=== PATIENT | male | born 1960 | race Caucasian/White ===

== ENCOUNTER 2022-12-18 09:30 | Emergency (ER) | payer OTHER ==
[2022-12-18] MEDS ORDERED: Sodium Chloride 0.9% 1000 ML 1,000 ML ONE (10:23)
[2022-12-18] MEDS ORDERED: Sodium Chloride 0.9% 1000 ML 1,000 ML IV STA (10:23)
--- NOTE | 2022-12-18 10:48 | ERPHSYRPT ---
- History of Present Illness Time Seen by Provider: 12/18/22 09:32 Patient Subjective Stated Complaint: running fever for 8 days Triage Nursing Assessment: Patient reports to ER with complaints of f ever/chills, headache and lethargy over the last 8 days. Patient states that he has taken two home covid test which were negative and that he was tested at our [facility] on 12/16/22 which was also negative. Patient reports he has been taking tylenol every 6 hours for the last 8 days. Temp 99.1 oral at this time. Patients denies headache at this time but states he just feels "exhausted". Patient den ies shortness of breath, cough, sore throat and head congestion. Physician History: 62 years old male with history of hypertension presented in the ER with chief complaint of fever for last 8 days. Fever breaks for few hour after taking Tylenol. Reports associated headache while having fever without neck pain rigidity/vomiting nausea. Denies any chest pain palpitations shortness of breath, mild upper respiratory congestion. Denies any urinary symptoms. No abdominal pain. Denies any known sick contacts. Timing/Duration: day(s) (8), intermittent, gradual onset, worse Severity: moderate Modifying Factors: Improves With: acetaminophen Associated Symptoms: chills, fever, headaches, loss of appetite, malaise, weakness, No nausea, No vomiting, No abdominal pain, No shortness of breath, No heartburn, No diaphoresis, No cough, No chest pain, No syncope, No seizure Allergies/Adverse Reactions: No Known Drug Allergies Allergy (Unverified 12/18/22 09:37) Home Medications: Amlodipine Besylate 5 mg [Norvasc 5 mg] 5 mg PO DAILY 12/18/22 [History] Hx Influenza Vaccination/Date Given: Yes Immunizations Up to Date: Yes Travel Risk - International Travel Have you traveled outside of the country in past 3 weeks: No - Coronavirus Screening Are you exhibiting any of the following symptoms?: No Close contact with a COVID-19 positive Pt in past 14-21 Days: No - Vaccine Status Have you recieved a Covid-19 vaccination: Yes Staffing Consultant: [employer] - Vaccination Dates Date of 2cond Vaccination (if applicable): unk - Review of Systems Constitutional: Fever, Chills, Fatigue, Weakness Eyes: No Symptoms Ears, Nose, & Throat: Nose Congestion Respiratory: No Symptoms Cardiac: No Symptoms Abdominal/Gastrointestinal: No Symptoms Genitourinary Symptoms: No Symptoms Musculoskeletal: No Symptoms Skin: No Symptoms Neurological: Headache Psychological: No Symptoms Endocrine: No Symptoms Hematologic/Lymphatic: No Symptoms - Past Medical History Pertinent Past Medical History: Yes Neurological History: No Pertinent History ENT History: No Pertinent History Cardiac History: Hypertension Respiratory History: No Pertinent History Endocrine Medical History: No Pertinent History Musculoskeletal History: No Pertinent History GI Medical History: No Pertinent History History: No Pertinent History Psycho-Social History: No Pertinent History Male Reproductive Disorders: No Pertinent History - Past Surgical History Past Surgical History: Yes Neuro Surgical History: No Pertinent History Cardiac: No Pertinent History Gastrointestinal: Cholecystectomy Genitourinary: No Pertinent History Musculoskeletal: No Pertinent History Male Surgical History: No Pertinent History - Social History Smoking Status: Never smoker Exposure to second hand smoke: No Drug Use: none Patient Lives Alone: Yes - Nursing Vital Signs Nursing Vital Signs: Initial Vital Signs Temperature 99.1 F 12/18/22 09:42 Pulse Rate 99 H 12/18/22 09:42 Respiratory Rate 18 12/18/22 09:42 Blood Pressure 145/90 12/18/22 09:42 Pain Scale Pain Intensity 0 - Physical Exam General Appearance: no apparent distress, alert Eye Exam: PERRL/EOMI Ears, Nose, Throat Exam: normal ENT inspection, TMs normal, pharynx normal, moist mucous membranes Neck Exam: normal inspection, non-tender, supple, full range of motion Respiratory Exam: normal breath sounds, lungs clear Cardiovascular Exam: regular rate/rhythm, normal heart sounds Gastrointestinal/Abdomen Exam: soft, normal bowel sounds, No tenderness Back Exam: normal inspection, normal range of motion Neurologic Exam: alert, oriented x 3, cooperative, security and compliance analyst II-XII nml as tested, normal mood/affect, nml cerebellar function, nml station & gait, sensation nml, No motor deficits SpO2 Interpretation: normal SpO2: 96 O2 Delivery: Room Air Ordered Tests: Active Orders 24 hr Category Date Time Status IV Insertion STAT Care 12/18/22 10:23 Active ABDOMEN AND PELVIS W CONTRAST [CT] Stat Exams 12/18/22 11:59 Completed CHEST 1 VIEW (PORTABLE) Stat Exams 12/18/22 10:23 Taken BLOOD CULTURE Stat Lab 12/18/22 10:25 Received CBC W DIFF Stat Lab 12/18/22 10:45 Completed CK-Creatinine Phosphokinase Stat Lab 12/18/22 10:45 Completed CMP Stat Lab 12/18/22 10:45 Completed CULTURE,URINE Stat Lab 12/18/22 10:29 Received Lactic Acid Stat Lab 12/18/22 11:14 Completed MAGNESIUM Stat Lab 12/18/22 10:45 Completed PROCALCITONIN Stat Lab 12/18/22 10:45 Completed UA W/RFX UR CULTURE Stat Lab 12/18/22 10:29 Completed Medication Summary Generic Name Dose Route Start Last Admin Trade Name Freq PRN Reason Stop Dose Admin Acetaminophen 1,000 mg 12/18/22 10:57 12/18/22 11:00 Acetaminophen 500 Mg Tablet PO 01/17/23 10:56 1,000 mg Q4H PRN PRN Administration HEADACHE Discontinued Medications Generic Name Dose Route Start Last Admin Trade Name Freq PRN Reason Stop Dose Admin Sodium Chloride 1,000 mls @ 999 mls/hr 12/18/22 10:23 12/18/22 11:38 Sodium Chloride 0.9% 1000 Ml IV 12/18/22 11:23 Infused .Q1H1M STA Infusion Sodium Chloride Confirm 12/18/22 10:23 Sodium Chloride 0.9% 1000 Ml Administered 12/18/22 10:24 Dose 1,000 mls @ ud .ROUTE .STK-MED ONE Piperacillin Sod/Tazobactam 100 mls @ 200 mls/hr 12/18/22 11:58 12/18/22 12:10 Sod 3.375 gm/ Sodium Chloride IV 12/18/22 12:27 200 mls/hr STAT ONE Administration Sodium Chloride Confirm 12/18/22 12:07 Sodium Chloride 100ml Mini-Bag Plus Administered 12/18/22 12:08 Dose 100 mls @ ud IV .STK-MED ONE Ketorolac Tromethamine 30 mg 12/18/22 12:17 12/18/22 12:19 Ketorolac Tromethamine 30 Mg/Ml Inj IV 12/18/22 12:18 30 mg STAT ONE Administration Ketorolac Tromethamine Confirm 12/18/22 12:18 Ketorolac Tromethamine 30 Mg/Ml Inj Administered 12/18/22 12:19 Dose 30 mg .ROUTE .STK-MED ONE Piperacillin Sod/Tazobactam Sod Confirm 12/18/22 12:07 Piperacillin/Tazobactam Sodium 3.375 Gm Vial Administered 12/18/22 12:08 Dose 3.375 gm IV .[facility] ONE Lab/Rad Data: Laboratory Result Diagrams 12/18/22 10:45 12/18/22 10:45 Laboratory Results 12/18/22 12/18/22 12/18/22 Range/Units 11:14 10:45 10:45 WBC (4.0-10.5) x10^3/uL RBC (4.1-5.6) x10^6/uL Hgb (12.5-18.0) g/dL Hct (42-50) % MCV (78-100) fL MCH (26-32) pg MCHC (32-36) g/dL RDW (11.5-14.0) % Plt Count (150-450) x10^3/uL MPV (7.5-11.0) fL Gran % (36.0-66.0) % Immature Gran % (Auto) (0.00-0.4) % Nucleat RBC Rel Count (0.00-0.1) % Eos # (Auto) (0-0.5) x10^3/uL Immature Gran # (Auto) (0.00-0.03) x10^3u/L Absolute Lymphs (auto) (1.0-4.6) x10^3/uL Absolute Monos (auto) (0.0-1.3) x10^3/uL Absolute Nucleated RBC (0.00-0.01) x10^3u/L Lymphocytes % (24.0-44.0) % Monocytes % (0.0-12.0) % Eosinophils % (0.00-5.0) % Basophils % (0.0-0.4) % Absolute Granulocytes (1.4-6.9) x10^3/uL Basophils # (0-0.4) x10^3/uL Sodium (137-145) mmol/L Potassium (3.5-5.1) mmol/L Chloride (98-107) mmol/L Carbon Dioxide (22-30) mmol/L Anion Gap (5-15) MEQ/L BUN (9-20) mg/dL Creatinine (0.66-1.25) mg/dL Estimated GFR ML/MIN Glucose (74-106) mg/dL Lactic Acid 1.5 (0.4-2.0) Calcium (8.4-10.2) mg/dL Magnesium (1.6-2.3) mg/dL Total Bilirubin (0.2-1.3) mg/dL AST (17-59) U/L ALT (0-50) U/L Alkaline Phosphatase (38-126) U/L Creatine Kinase (55-170) U/L Serum Total Protein (6.3-8.2) g/dL Albumin (3.5-5.0) g/dL Procalcitonin 0.557 H (0.030-0.080) ng/mL Urine Color (Yellow) Urine Appearance (Clear) Urine pH (4.6-8.0) Ur Specific [place] (1.005-1.030) Urine Protein (Negative) Urine Glucose (UA) (Negative) mg/dL Urine Ketones (Negative) Urine Blood (Negative) Urine Nitrite (Negative) Urine Bilirubin (Negative) Urine Urobilinogen (0.2) mg/dL Ur Leukocyte Esterase (Negative) U Hyaline Cast (Auto) (0-2) /LPF Urine Microscopic RBC (0-5) /HPF Urine Microscopic WBC (0-5) /HPF Ur Epithelial Cells (None Seen) /HPF Urine Bacteria (None Seen) /HPF Urine Culture Reflexed (NO) Influenza Type A Ag NEGATIVE (NEGATIVE) Influenza Type B Ag NEGATIVE (NEGATIVE) RSV (PCR) NEGATIVE (NEGATIVE) SARS-CoV-2 (PCR) NEGATIVE (NEGATIVE) Group A Strep Antibody NOT DETECTED (NEGATIVE) 12/18/22 12/18/22 12/18/22 Range/Units 10:45 10:45 10:29 WBC 6.9 (4.0-10.5) x10^3/uL RBC 5.64 H (4.1-5.6) x10^6/uL Hgb 16.9 (12.5-18.0) g/dL Hct 50.7 H (42-50) % MCV 89.9 (78-100) fL MCH 30.0 (26-32) pg MCHC 33.3 (32-36) g/dL RDW 13.1 (11.5-14.0) % Plt Count 141 L (150-450) x10^3/uL MPV 9.4 (7.5-11.0) fL Gran % 65.2 (36.0-66.0) % Immature Gran % (Auto) 0.7 H (0.00-0.4) % Nucleat RBC Rel Count 0.0 (0.00-0.1) % Eos # (Auto) 0.06 (0-0.5) x10^3/uL Immature Gran # (Auto) 0.05 H (0.00-0.03) x10^3u/L Absolute Lymphs (auto) 1.85 (1.0-4.6) x10^3/uL Absolute Monos (auto) 0.37 (0.0-1.3) x10^3/uL Absolute Nucleated RBC 0.00 (0.00-0.01) x10^3u/L Lymphocytes % 26.7 (24.0-44.0) % Monocytes % 5.3 (0.0-12.0) % Eosinophils % 0.9 (0.00-5.0) % Basophils % 1.2 (0.0-0.4) % Absolute Granulocytes 4.52 (1.4-6.9) x10^3/uL Basophils # 0.08 (0-0.4) x10^3/uL Sodium 136 L (137-145) mmol/L Potassium 4.6 (3.5-5.1) mmol/L Chloride 102 (98-107) mmol/L Carbon Dioxide 27 (22-30) mmol/L Anion Gap 11.9 (5-15) MEQ/L BUN 19 (9-20) mg/dL Creatinine 1.29 H (0.66-1.25) mg/dL Estimated GFR > 60.0 ML/MIN Glucose 104 (74-106) mg/dL Lactic Acid (0.4-2.0) Calcium 8.6 (8.4-10.2) mg/dL Magnesium 2.2 (1.6-2.3) mg/dL Total Bilirubin 2.60 H (0.2-1.3) mg/dL AST 89 H (17-59) U/L ALT 181 H (0-50) U/L Alkaline Phosphatase 303 H (38-126) U/L Creatine Kinase 50 L (55-170) U/L Serum Total Protein 6.8 (6.3-8.2) g/dL Albumin 3.7 (3.5-5.0) g/dL Procalcitonin (0.030-0.080) ng/mL Urine Color Dark Yellow (Yellow) Urine Appearance Clear (Clear) Urine pH 5.5 (4.6-8.0) Ur Specific [place] >=1.030 A (1.005-1.030) Urine Protein 100 A (Negative) Urine Glucose (UA) Negative (Negative) mg/dL Urine Ketones 15 A (Negative) Urine Blood Negative (Negative) Urine Nitrite Positive A (Negative) Urine Bilirubin Moderate A (Negative) Urine Urobilinogen 1.0 A (0.2) mg/dL Ur Leukocyte Esterase Trace A (Negative) U Hyaline Cast (Auto) 3-5 A (0-2) /LPF Urine Microscopic RBC 0-2 (0-5) /HPF Urine Microscopic WBC 0-2 (0-5) /HPF Ur Epithelial Cells Rare (None Seen) /HPF Urine Bacteria Many A (None Seen) /HPF Urine Culture Reflexed YES (NO) Influenza Type A Ag (NEGATIVE) Influenza Type B Ag (NEGATIVE) RSV (PCR) (NEGATIVE) SARS-CoV-2 (PCR) (NEGATIVE) Group A Strep Antibody (NEGATIVE) - Progress Progress: improved, re-examined Progress Note: 12/18/22 14:59 62 years old male with history of hypertension presented in the ER with chief complaint of fever for last 8 days. Fever breaks for few hour after taking Tylenol. Reports associated headache while having fever without neck pain rigidity/vomiting nausea. Denies any chest pain palpitations shortness of breath, mild upper respiratory congestion. Denies any urinary symptoms. No abdominal pain. Denies any known sick contacts. Patient is not in any distress. Vital stable. Work-up showed white count 6.9 with normal lactate and procalcitonin 1.55. Chemistries has normal electrolytes, creatinine 1.29 and elevated transaminases and bilirubin of 2.6. Patient has negative COVID flu and strep. Chest x-ray negative for any acute cardiopulmonary findings reviewed by me, official report is pending. During the later evaluation patient was complaining of some pain on the left upper abdomen, I have obtained CT abdomen pelvis with contrast and it is negative for any acute intra-abdominal findings. Patient has no vomiting or diarrhea. Given Toradol and pain is resolved. Does have urinary tract infection and given a dose of Zosyn here. Patient does not have any history of tick bite or any rash. Will obtain tick panel. His symptoms could be viral etiology. I have offered him observation admission but patient preferred to go home. He is vitally stable, I think it would be reasonable and he would do outpatient follow-up with his primary care in 2 days as scheduled and will have chemistries rechecked. I have discussed with patient in detail about symptoms/signs of worsening needing return to ER which he seems understanding. He would be discharged on oral Levaquin for UTI. Counseled pt/family regarding: lab results, diagnosis, need for follow-up, rad results Medical Desision Making - Independent Historian Additional History obtained from: Spouse - Diagnostic Testing Diagnostic test were ordered, analyzed, and reviewed by me: Yes Radiological Interpretation: Interpreted by me, Reviewed by me, Teleradiologist Report - Risk of complications The pt has a mod risk of morbidity or mortality based on: Need for prescription drug management - Departure Departure Disposition: Home Clinical Impression: Acute UTI (urinary tract infection), Viral syndrome, Elevated liver enzymes, Thrombocytopenia Condition: Stable Critical Care Time: No Referrals: SVETLANA ALANIZ [Primary Care Provider] - Follow up/PCP as directed (In 2 days as scheduled) Instructions: Viral Syndrome (DC), Urinary Tract Infection, Adult (DC) Additional Instructions: Take Tylenol as needed for fever greater than 100.4. Drink plenty of fluids. Return to ER for persistent high-grade fever chills, abdominal pain, yellowish discoloration of skin/eyes sclera. Follow-up with your primary care physician for reevaluation in 2 days as scheduled. Prescriptions: Levofloxacin [Levaquin 500 MG Tablet] 500 mg PO DAILY #7 tablet
[2022-12-18 10:56] LABS: Absolute Neutrophil Ct (ANC) 4.52 x10^3/uL (1.4-6.9); BASOPHIL % 1.2 % (0.0-0.4); Basophil (Absolute #) 0.08 x10^3/uL (0-0.4); Eosinophil % 0.9 % (0.00-5.0); Eosinophil (Absolute #) 0.06 x10^3/uL (0-0.5); Hematocrit 50.7 % (42-50); Hemoglobin 16.9 g/dL (12.5-18.0); IMMATURE GRAN # 0.05 x10^3u/L (0.00-0.03); IMMATURE GRAN % 0.7 % (0.00-0.4); Lymphocyte (Absolute #) 1.85 x10^3/uL (1.0-4.6); Lymphocytes % 26.7 % (24.0-44.0); Mean Cell Volume 89.9 fL (78-100); Mean Corpuscular Hgb Concent. 33.3 g/dL (32-36); Mean Platelet Volume 9.4 fL (7.5-11.0); Monocyte (Absolute #) 0.37 x10^3/uL (0.0-1.3); Monocytes % 5.3 % (0.0-12.0); Neutrophil % 65.2 % (36.0-66.0); Platelet Count 141 x10^3/uL (150-450); Red Blood Count 5.64 x10^6/uL (4.1-5.6); Red Cell Distribution Width 13.1 % (11.5-14.0); White Blood Count 6.9 x10^3/uL (4.0-10.5)
[2022-12-18] MEDS ORDERED: TYLENOL EXTRA STRENGTH 500 MG PO PRN (10:57)
[2022-12-18] MEDS ORDERED: TYLENOL EXTRA STRENGTH 500 MG ONE (10:58)
[2022-12-18 11:13] LABS: ALBUMIN 3.7 g/dL (3.5-5.0); ALKALINE PHOSPHATASE 303 U/L (38-126); ANION GAP 11.9 MEQ/L (5-15); BLOOD UREA NITROGEN 19 mg/dL (9-20); CHLORIDE 102 mmol/L (98-107); CK-Creatinine Phosphokinase 50 U/L (55-170); Calcium 8.6 mg/dL (8.4-10.2); Carbon Dioxide 27 mmol/L (22-30); Creatinine 1 1.29 mg/dL (0.66-1.25); EST GLOMERULAR FILTRATION RATE > 60.0 ML/MIN; Glucose 104 mg/dL (74-106); MAGNESIUM 2.2 mg/dL (1.6-2.3); Potassium 4.6 mmol/L (3.5-5.1); SGOT/AST 89 U/L (17-59); SGPT/ALT 181 U/L (0-50); SODIUM 136 mmol/L (137-145); Total Protein 6.8 g/dL (6.3-8.2)
[2022-12-18 11:40] LABS: Appearance Clear (Clear); Bilirubin Moderate (Negative); Blood Negative (Negative); Epithelial Cells Rare /HPF (None Seen); Glucose, Urine Negative (Negative); Ketones 15 (Negative); Leukocyte Esterase Trace (Negative); Nitrite Positive (Negative); Ph 5.5 (4.6-8.0); Protein,Urine Dip 100 (Negative); RBC 0-2 /HPF (0-5); Specific Gravity >=1.030 (1.005-1.030); WBC 0-2 /HPF (0-5)
[2022-12-18 11:40] LABS: Group A Strep NOT DETECTED (NEGATIVE)
[2022-12-18 11:46] LABS: ADD URINE CULTURE? YES (NO); Bacteria Many /HPF (None Seen)
[2022-12-18 11:50] LABS: INFLUENZA A NEGATIVE (NEGATIVE); INFLUENZA B NEGATIVE (NEGATIVE); RESPIRATORY SYNCTIAL VIRUS NEGATIVE (NEGATIVE); SARS-CoV-2 Xpert Express NEGATIVE (NEGATIVE)
[2022-12-18] MEDS ORDERED: PIPERACILLIN/TAZOBACTAM 3.375 GM in Sodium Chloride 100ML MINI-BAG PLUS 100 ML IV ONE (11:58)
[2022-12-18] MEDS ORDERED: Sodium Chloride 100ML MINI-BAG PLUS 100 ML IV ONE (12:07)
[2022-12-18] MEDS ORDERED: PIPERACILLIN/TAZOBACTAM IV ONE (12:07)
[2022-12-18] MEDS ORDERED: TORAdol 30 mg Injection IV ONE (12:17)
[2022-12-18] MEDS ORDERED: TORAdol 30 mg Injection ONE (12:18)
[2022-12-18 13:13] VITALS: RESP 16
--- NOTE | 2022-12-18 13:53 | XRAY ---
CLINICAL HISTORY:upper abd pain, pyelonephr/colitis COMPARISON:None TECHNIQUE:CT scan of the abdomen and pelvis was performed with IV contrast. Coronal and sagittal reconstructive images were also obtained. FINDINGS: The liver is normal in size. No focal or diffuse parenchymal abnormality. The portal vein, intrahepatic biliary radicals and the bile ducts are normal. The spleen, pancreas, adrenal glands are unremarkable. Both kidneys appear unremarkable. They are normal in size and shape. No calculi or hydronephrosis. No evidence of perinephric fat stranding seen bilaterally. Status post cholecystectomy. Visualized small and large bowel loops appear unremarkable. There is no evidence of significant enlargement of the mesenteric or retroperitoneal lymph nodes. The urinary bladder is unremarkable. The prostate is unremarkable. The pelvic vasculature is unremarkable. No evidence of pelvic lymphadenopathy. Mild degenerative changes seen in the visualized spine. At lung bases mild left basal atelectasis noted. IMPRESSION: Both kidneys appear unremarkable. They are normal in size and shape. No calculi or hydronephrosis. No evidence of perinephric fat stranding seen bilaterally. No significant abnormality seen in CT scan abdomen and pelvis. Electronically Signed by: Eusebia Linton MD. (12/18/2022 12:53:19 FOREIGN LANGUAGE INSTRUCTOR)
[2022-12-18 15:07] VITALS: O2SAT 96
[2022-12-18 15:17] VITALS: BP 116/72; PULSE 84; TEMP 98.3
--- NOTE | 2022-12-19 10:16 | XRAY ---
CLINICAL HISTORY:fever COMPARISON:None. TECHNIQUE:X-ray of the chest showing 1 view: AP view. FINDINGS: Radiographic examination of the chest demonstrates clear lungs. Normal configuration of the mediastinum. The ketan are normal in size and position. The cardiac size is normal. The bony thorax is unremarkable. The costophrenic and cardiophrenic angles are clear. IMPRESSION: No active pulmonary pathology detected. Electronically Signed by: Eusebia Linton MD. (12/18/2022 09:51:53 HYDRAULIC OPERATOR)
[2022-12-20 06:09] LABS: HBsAg Screen Negative (Negative); HCV Ab Non Reactive (Non Reactive); Hep A Ab, IgM Negative (Negative); Hep B Core Ab, IgM Negative (Negative)
== END 2022-12-18 15:18 | disposition home or self-care (01) ==
LOC: ED 09:30
DX: N39.0 Urinary tract infection, site not specified (principal); B34.9 Viral infection, unspecified; R94.5 Abnormal results of liver function studies; D69.6 Thrombocytopenia, unspecified; R50.9 Fever, unspecified; R51.9 Headache, unspecified; I10 Essential (primary) hypertension
CPT/HCPCS: 0241U; 36000; 36415; 71045; 74177; 80053; 80074; 81001; 82550; 83605; 83735; 84145; 85025; 87040; 87086; 87651; 96360; 96365; 96374; 99284; J1885; A9270-GY